=== PATIENT | female | born 1930 | race Caucasian/White ===

== ENCOUNTER 2016-08-13 17:56 | Inpatient (IN) | payer MEDICARE, OTHER ==
--- NOTE | ~2016-08-13 | CN ---
Consultation Report [facility] [address] [place]. [address] NAME: MARYELLEN GREER : 30 STATUS : ADM IN PAT#: [id number] AGE: 85 ADM/REG DATE : 08/13/16 MR#: [id number] REPORT SERV DATE: 08/14/16 DICTATED BY: MENA MONTERO DATE: 08/14/16 REPORT STATUS : Draft TRANSCRIBED BY: MODL DATE: 08/14/16 CARDIOLOGY CONSULTATION DATE OF CONSULTATION: 08/14/2016 REASON FOR CONSULTATION: New diagnosis of atrial fibrillation with probable congestive heart failure. HISTORY OF PRESENT ILLNESS: The patient is an 85-year-old white female, who presented to the emergency department after a fall with severe left hip pain. She was found to have a left hip fracture and new onset atrial fibrillation with a rapid ventricular response. Her troponin has been negative x2. Her BNP level was slightly elevated. Currently she is rate controlled on a Cardizem drip and in no distress. She is scheduled for hip surgery later today. PAST MEDICAL HISTORY: Significant for breast cancer, status post surgery, chemotherapy, and radiation as well as hypothyroidism, hypertension, hyperlipidemia, diverticulosis, previous cellulitis of the lower extremities, B12 deficiency, and chronic lymphedema as well as neuropathy. The patient denies any previous cardiac history other than hypertension and some intermittent palpitations. Her son does report a history of a syncopal episode about a year ago with no clear etiology found at that time and no recurrence since. PAST SURGICAL HISTORY: Includes cholecystectomy, appendectomy, tubal ligation, breast cancer surgery, and right knee surgery. SOCIAL HISTORY: The patient quit smoking in 1983. No alcohol or illicit drug use. She currently lives alone but her son lives just next door. She has apparently had several falls over the past year due to an unsteady gait but this is apparently her first fracture. FAMILY HISTORY: Positive for breast cancer in her mother as well as multiple family members with diabetes. No significant cardiac history in the family. REVIEW OF SYSTEMS: The patient denies nausea, vomiting, diarrhea, or dysuria. She denies any chest pain or dyspnea on exertion. She does report intermittent palpitations that have been occurring intermittently for quite some time. She states that she will usually just go sit down and rest and the palpitations subside. No recent syncope or presyncope. PHYSICAL EXAMINATION: VITAL SIGNS: Blood pressure is 104/58, heart rate 78 and irregular, and respirations are 18 and nonlabored. GENERAL APPEARANCE: The patient is a well developed, well nourished, elderly female, in no acute distress. HEENT: Unremarkable. Consultation Report [facility] [address] [place]. [address] NAME: MARYELLEN GREER : 30 STATUS : ADM IN PAT#: [id number] AGE: 85 ADM/REG DATE : 08/13/16 MR#: [id number] REPORT SERV DATE: 08/14/16 DICTATED BY: MENA MONTERO DATE: 08/14/16 REPORT STATUS : Draft TRANSCRIBED BY: ADELIA DATE: 08/14/16 NECK: Shows no jugular venous distention with good carotid upstroke. No carotid bruit is appreciated. CHEST: Remarkable for some crackles in the bases, left greater than right. CARDIOVASCULAR: PMI is nondisplaced. S1 is variable. S2 is narrowly split. No murmurs, gallops, or rubs noted. ABDOMEN: Soft and nontender with normal bowel sounds. EXTREMITIES: Show +1 to 2 pitting edema on the left with trace edema on the right lower extremity. No cyanosis or clubbing is noted. SKIN: Warm and dry with no pallor or icterus. NEURO/PSYCH: The patient is alert and oriented x3 with appropriate affect. LABORATORY AND DIAGNOSTIC DATA: EKG from last night shows atrial fibrillation with a rapid ventricular response and a left anterior hemiblock, but no acute injury pattern. Chest x- ray showed no acute cardiopulmonary process. Chemistry panel shows a sodium of 139, potassium 4.7, BUN 14, creatinine 0.91, and magnesium 1.7. Troponin is negative x2. The TSH was low at 0.039. BNP level on admission was mildly elevated at 388 with a repeat this morning of 639. IMPRESSION: 1. Atrial fibrillation with rapid ventricular response, now rate controlled. 2. Mild acute congestive heart failure probably related to atrial fibrillation with rapid ventricular response, now rate controlled. 3. Left hip fracture status post fall. 4. Essential hypertension. 5. History of hypothyroidism but currently in a hyperthyroid state on replacement. 6. Remote history of syncope. PLAN: 1. We will check an echocardiogram which has already been ordered. 2. Agree with low-dose beta-kristine and Cardizem drip for rate control. 3. Add oral digoxin and wean Cardizem drip as tolerated. Thank you very much for this consultation. We will continue to follow the patient postoperatively with you. CHAITANYA/ADELIA Mena Montero NP / [id number] CC: Helio Soni M.D. Consultation Report [facility] [id number] [facility] [place]. [address] NAME: MARYELLEN GREER : 30 STATUS : ADM IN PAT#: [id number] AGE: 85 ADM/REG DATE : 08/13/16 MR#: [id number] REPORT SERV DATE: 08/14/16 DICTATED BY: MENA MONTERO DATE: 08/14/16 REPORT STATUS : Draft TRANSCRIBED BY: ADELIA DATE: 08/14/16 Pankaj Monroy M.D. Charli Hayden M.D., F.A.C.C.
--- NOTE | ~2016-08-13 | DS ---
Discharge Summary [facility] [address] [place]. [address] NAME: MARYELLEN GREER : 30 STATUS : DIS IN PAT#: [id number] AGE: 85 ADM/REG DATE : 08/13/16 MR#: [id number] REPORT SERV DATE: 08/22/16 DICTATED BY: ALEX GARDINER DATE: 08/21/16 REPORT STATUS : Draft TRANSCRIBED BY: MODL DATE: 08/21/16 ADMISSION DATE: 08/13/2016 DISCHARGE DATE: 08/21/2016 HOSPITAL COURSE: Please see prior discharge summary done by Dr. Soin. DISCHARGE DIAGNOSES: Hip fracture, atrial fibrillation, RVR, iatrogenic hyperthyroidism due to high Synthroid dosing, high output congestive heart failure, iatrogenic hyperthyroidism, hypoglycemia, failure to thrive, postprocedural hypovolemia, postsurgical acute blood loss anemia. HOSPITAL COURSE: This is an 85-year-old female with known history of dementia. She had come in with a hip fracture, found to be in atrial fibrillation RVR, heart rate 160, TSH highly depressed, free T4 greater than 2, was getting home dose 175 mcg Synthroid unclear why she has had such a high dose with suspected prior noncompliance issue. Synthroid was held, received IV beta blockade. 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 Medical therapies were augmented; BRET and digoxin. T4 has come down close to normal range. Synthroid was restarted only 75 mcg a day. The patient was started on Megace for appetite stimulation. When I saw the patient, the patient was encephalopathic. Full panculture with urine culture rather; urine culture unfortunately grew out ESBL E. coli. She had 5 white blood cells in urine, large leukocyte esterase, thankfully is sensitive to Levaquin, we will start this and give six total days of therapy. Given that she is clinically improved despite optimal treatment, this is ESBL, she is given Rocephin here, it is possible mild UTI encephalopathy. The patient as a result will be discharged. Follow up with PCP in two weeks. Her Doppler lower extremities were negative. She also had a CT of the brain given her encephalopathy. No acute stroke, only cerebral volume loss. 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 DISCHARGE MEDICATIONS: Will include Levaquin 750 p.o. daily for 5 more days, we will give a dose today as well. Aspirin 81 p.o. daily, Lipitor 20 p.o. daily as well as digoxin 0.125 p.o. daily as well as Colace 100 p.o. b.i.d., as well as NovoLog sliding scale, Xalatan eye drops, Synthroid 75 mcg p.o. q.a.m., lisinopril 5 p.o. daily, mag oxide 800 p.o. b.i.d. for 4 more days, KCl 10 mEq p.o. daily, Coumadin sliding scale, Levaquin 750p.o. daily for five more days, Florastor one capsule p.o. b.i.d., Altorex iron supplement at 150 p.o. at bedtime. CONSULTS: Orthopedics, apparently had Cardiology consultation initially as well for atrial fibrillation RVR with Dr. Alfaro. DISCHARGE DIAGNOSES: See above. All questions were answered. It took well over 30 minutes to do. She is much less confused now. Discharge Summary [address] [address] NAME: MARYELLEN GREER : 30 STATUS : DIS IN PAT#: [id number] AGE: 85 ADM/REG DATE : 08/13/16 MR#: [id number] REPORT SERV DATE: 08/22/16 DICTATED BY: ALEX GARDINER DATE: 08/21/16 REPORT STATUS : Draft TRANSCRIBED BY: ADELIA DATE: 08/21/16 NGA/ADELIA Alex Gardiner DO / [id number] CC: DO Pankaj Negro M.D.
--- NOTE | ~2016-08-13 | CN ---
Consultation Report [facility] [address] [facility] [place]. [address] NAME: MARYELLEN GREER : 30 STATUS : ADM IN PAT#: [id number] AGE: 85 ADM/REG DATE : 08/13/16 MR#: [id number] REPORT SERV DATE: 08/14/16 DICTATED BY: MENA MONTERO DATE: 08/14/16 REPORT STATUS : Draft TRANSCRIBED BY: MODL DATE: 08/14/16 CARDIOLOGY CONSULTATION DATE OF CONSULTATION: 08/14/2016 REASON FOR CONSULTATION: Atrial fibrillation and CHF. HISTORY OF PRESENT ILLNESS: The patient is a pleasant 85-year-old white female, who presented to the emergency department after a fall yesterday with severe left hip pain. DICTATION ENDS HERE CHAITANYA/ADELIA Mena Montero NP / [id number] CC: Misael Brower Richard
--- NOTE | ~2016-08-13 | HP ---
History And Physical [facility] [id number] [facility] [place]. [address] NAME: MARYELLEN GREER : 30 STATUS : ADM IN PAT#: [id number] AGE: 85 ADM/REG DATE : 08/13/16 MR#: [id number] REPORT SERV DATE: 08/14/16 DICTATED BY: EVE MEREDITH DATE: 08/14/16 REPORT STATUS : Draft TRANSCRIBED BY: MODL DATE: 08/14/16 DATE OF ADMISSION: 08/13/2016 CHIEF COMPLAINT: An 85-year-old female presenting with a fall and left hip fracture and evidence of new-onset rapid atrial fibrillation. HISTORY OF PRESENT ILLNESS: The patient's history was obtained through careful interview with the patient and son coupled with review of [facility] and [facility] medical records. The patient has actually been ill for at least a year or more. She has lost about 10 pounds over that period of time and the family describes the patient having "a couple of spectacular falls" over the last year. They seem to be sporadic, maybe once every other month, but they have been surprised that she has never fractured any bones before this current presentation. She has had a general decline over this last year. She describes quite frequent dizziness and orthostatic symptoms and seems to complain of occasional palpitations as well. Seven to eight months ago, she actually had a syncopal episode while at the grocery store. The son thought it was attributed to something she ate that day and so they did not go to a hospital for further evaluation of this. It is in this context that the patient was at the foot of her bed this morning and tripped over her portable toilet. She collapsed to the ground and had immediate severe left hip pain. She could not get up from a lying down position, so she called her son by cell phone and he found that she could not get up despite his several attempts. Therefore, they called the ambulance to bring her to the hospital. She described 10/10 left hip pain without significant radiation. No headache, no closed head injury, no loss of consciousness today. She was suffering from lightheadedness, but not any more severe than usual. She does not remember any specific palpitations today. No abdominal pain. She had some slight nausea, but no vomiting. She uses a pessary. No diarrhea or constipation. She has had progression of her dementia over the last year. REVIEW OF SYSTEMS: Otherwise, a 14-point review of systems was obtained and was negative. PAST MEDICAL HISTORY: 1. Breast cancer, 2000 and 2001, status post surgery, chemotherapy, and radiation. 2. Hypothyroidism. 3. Hypertension. History And Physical [address] [address] NAME: MARYELLEN GREER : 30 STATUS : ADM IN PAT#: [id number] AGE: 85 ADM/REG DATE : 08/13/16 MR#: [id number] REPORT SERV DATE: 08/14/16 DICTATED BY: EVE MEREDITH DATE: 08/14/16 REPORT STATUS : Draft TRANSCRIBED BY: ADELIA DATE: 08/14/16 4. Elevated cholesterol. 5. Cellulitis of the legs. 6. Diverticulosis, seen by Dr. Cortez. 7. Pneumonia. 8. B12 deficiency. 9. An ERCP for choledocholithiasis. 10.Chronic lymphedema, right greater than left. 11.Neuropathy. PAST SURGICAL HISTORY: 1. Cholecystectomy. 2. Appendectomy. 3. Tubal ligation. 4. Right lumpectomy. 5. Right knee surgery. 6. Lipoma resection x2 from the back. ALLERGIES: NO KNOWN DRUG ALLERGIES. SOCIAL HISTORY: Quit smoking in 1983. No alcohol use. She lives alone. Has been a for 22 years. She also experienced secondhand tobacco exposure from her until he . She lives in [place], [place], now. Her son lives "across the yard." Another son lives about three miles away and a daughter lives about five miles away. She is supposed to ambulate with a cane, but often forgets to use it. FAMILY HISTORY: Mother with breast cancer. Strong family history of diabetes. CURRENT MEDICATIONS: Include Lipitor 20 mg p.o. daily, eyedrops, Synthroid 175 mcg p.o. daily, lisinopril 30 mg p.o. daily, p.o. q.h.s. PHYSICAL EXAMINATION: VITAL SIGNS: Temperature 97.5, pulse 156, blood pressure 134/87, respiratory rate 22, O2 saturation 98% on room air. GENERAL: A pleasant, cooperative female, in evidence of distress secondary to left hip pain. HEENT: Pupils equal, round, and reactive to light. No conjunctival pallor. No scleral icterus. Nares are patent. Oropharynx was clear of obstruction. Moist mucous membranes. NECK: Trachea midline. No thyromegaly. LYMPH: No cervical lymphadenopathy. No supraclavicular lymphadenopathy. RESPIRATORY: The patient does have wet rales at the base of lungs symmetrically to about the midlung field. No wheezes, no rhonchi. She has a slightly labored respiratory effort at rest in the bed. CARDIOVASCULAR: Tachycardic. Irregularly irregular. No murmurs, rubs, or gallops are appreciated. The patient has bilateral deeply pitting lower extremity edema that extends to the knees symmetrically. ABDOMEN: Soft, nontender, nondistended. Normal bowel sounds auscultated throughout. No hepatosplenomegaly. History And Physical [address] [place]. [address] NAME: MARYELLEN GREER : 30 STATUS : ADM [facility]#: [id number] AGE: 85 ADM/REG DATE : 08/13/16 MR#: [id number] REPORT SERV DATE: 08/14/16 DICTATED BY: EVE MEREDITH DATE: 08/14/16 REPORT STATUS : Draft TRANSCRIBED BY: ADELIA DATE: 08/14/16 DERMATOLOGIC: Warm and dry extremities. No pallor, no cyanosis. She has a bandage that was just placed on her right leg from a large cat scratch abrasion. Since it was just dressed, the family requests that we not unwrap it once again, so I have Wound Care team evaluate on the morning of 08/14/2016. PSYCHIATRIC: Normal affect. Good mood. Alert. She is poorly oriented to details of time, location, and some elements of recent history. LABORATORY DATA: TSH is quite low at 0.03. White blood cell count 6.7, hemoglobin 11, hematocrit 35, platelets 222. Sodium 140, potassium 3.6, chloride 105, bicarb 24, BUN 12, creatinine 0.74, glucose 188. Brain natriuretic peptide 388. Troponin negative. INR 1.1. Urinalysis negative for infection. STUDIES: 1. Chest x-ray by my own evaluation shows cardiomegaly, basilar pulmonary edema, left pleural effusion. 2. EKG by my own evaluation shows rapid atrial fibrillation, left axis deviation, small inferior Q-waves. 3. An x-ray was reported as showing a left femoral neck fracture. ASSESSMENT AND PLAN: 1. Left hip fracture. Obtain orthopedic consult. Place on IV narcotic pain management. 2. New-diagnosis rapid atrial fibrillation possibly induced by a hyperthyroid state? Start on Cardizem drip IV. Consult Dr. Hayden, in home aide. We discussed the case with Dr. Hayden in the emergency department and he recommends no preoperative heparin drip IV at this time. We will check an echocardiogram. 3. Congestive heart failure exacerbation. Suspect this has been induced by persistent rapid atrial fibrillation. Check an echocardiogram. Start beta-kristine. Place on IV diuretic. The patient is on an BRET inhibitor. 4. Iatrogenic hyperthyroidism likely from overmedication. The patient has a very low TSH and is on chronic Synthroid. We will hold Synthroid for now and we will need to adjust dose for discharge planning. 5. Hyperglycemia. Check hemoglobin A1c. Place on sliding scale insulin. 6. Right leg abrasions. Obtain a Wound Care consult. KPL/MODL Eve Meredith M.D. / [id number] CC: Misael Brower M.D.
--- NOTE | ~2016-08-13 | IDS ---
Interim Discharge Summary [facility] [address] [place]. [address] NAME: MARYELLEN GREER : 30 STATUS : ADM IN PAT#: [id number] AGE: 85 ADM/REG DATE : 08/13/16 MR#: [id number] REPORT SERV DATE: 08/18/16 DICTATED BY: CYNTHIA GARCIA DATE: 08/17/16 REPORT STATUS : Draft TRANSCRIBED BY: MODL DATE: 08/17/16 ADMISSION DATE: 08/13/2016 DISCHARGE DATE: DATE OF SUMMARY: 08/17/2016 PRINCIPAL DIAGNOSIS: Hip fracture. SECONDARY DIAGNOSES: Atrial fibrillation with rapid ventricular response due to iatrogenic hyperthyroidism, also high-output congestive heart failure due to iatrogenic hyperthyroidism, hypoglycemia, failure to thrive with postprocedural hypovolemia, post surgical acute blood loss anemia. HISTORY OF PRESENT ILLNESS: Please see Dr. Mcdonald's dictation, 08/13/2016. HOSPITAL COURSE: Admitted with a hip fracture, found to be in atrial fibrillation with RVR, heart rate of 160. TSH was highly depressed, free T4 greater than 2. The patient was found to have been on 175 mcg of Synthroid per day. It is unclear if perhaps her dose had been raised in the setting of prior noncompliance. In any event, the Synthroid was held. She received intravenous beta-blockade in preparation for her operation for the hip fracture, seen by Cardiology as well. Rate was able to be controlled. Ejection fraction showed a reduction to ejection fraction of 40% from baseline of 55% in this clinical study. She had no wall motion abnormalities. This clinical study was felt to be high-output congestive heart failure. She received diuretics prior to surgery and medical therapies were augmented in this setting of reduced systolic function such as BRET inhibitors and digoxin. Free T4 had come down close to normal range and Synthroid was restarted at 75 mcg daily. The patient tolerated physical therapy well. Moving her bowels well. The p.o. intake remained very, very poor. In fact, she had become hypovolemic and hypoglycemic despite the lack of supplemental insulin or diabetic agents, so on 08/17/2016, she was placed back on a D5 infusion, initiated on Megace therapy, and anticipate that she will be able to go to halfway facility on 08/18/2016. Dr. Coburn will presume care of this patient tomorrow. BHAVESH/MODL Cynthia Garcia M.D. / [id number] CC: Misael Brower M.D. Interim Discharge Summary [address] [address] NAME: MARYELLEN GREER : 30 STATUS : ADM IN PAT#: [id number] AGE: 85 ADM/REG DATE : 08/13/16 MR#: [id number] REPORT SERV DATE: 08/18/16 DICTATED BY: CYNTHIA GARCIA DATE: 08/17/16 REPORT STATUS : Draft TRANSCRIBED BY: MODL DATE: 08/17/16 Misael Gil M.D., [facility]
--- NOTE | ~2016-08-13 | HP ---
History And Physical [address] [place]. [address] NAME: MARYELLEN GREER : 30 STATUS : ADM IN PAT#: [id number] AGE: 85 ADM/REG DATE : 08/13/16 MR#: [id number] REPORT SERV DATE: 08/14/16 DICTATED BY: YAMINI MARADIAGA DATE: 08/14/16 REPORT STATUS : Draft TRANSCRIBED BY: MODL DATE: 08/14/16 DATE OF ADMISSION: 08/13/2016 CHIEF COMPLAINT: Left hip pain. HISTORY: This 85-year-old female, very pleasant, who tripped and fell, and injured her left hip. Denies pain or injury elsewhere except for some shortness in her shoulder. There is no associated loss of consciousness, shortness of breath, chest pain, etc. ALLERGIES: NONE. MEDICATIONS: See chart. PAST MEDICAL HISTORY: Hypertension and hypercholesterolemia. SURGICAL HISTORY: Skin cancer on the nose, history of breast cancer, lumpectomy of left breast in 2002, excision of tumor in the back in 1970, bunionectomy in 1977, cholecystectomy in 2006. SOCIAL HISTORY: Here with adult children. No cigarettes, alcohol, or illicit drug use. FAMILY HISTORY: No anesthetic complications. REVIEW OF SYSTEMS: Otherwise negative. PHYSICAL EXAMINATION: GENERAL: She is alert and oriented x3, in no apparent distress. HEENT: Atraumatic, normocephalic. NECK: Supple. CHEST: Symmetric, nontender. LUNGS: Per Medicine evaluation. CV: Regular. ABDOMEN: Soft. No mass. EXTREMITIES: Both upper extremities without acute trauma. Left shoulder with minimal tenderness. No outward sign of injury. Supple range of motion. Right lower extremity without acute trauma. Left lower extremity is short and externally rotated. Skin is intact. Compartment supple. 2+ pulses. NEURO: Sensory and motor without deficit, but weakened in the foot secondary to pain. X-RAY: Displaced left femoral neck fracture. ASSESSMENT: Displaced left femoral neck fracture. PLAN: Left total hip arthroplasty. Risks, benefits, etc, explained. The patient wishes to proceed. History And Physical [address] [address] NAME: MARYELLEN GREER : 30 STATUS : ADM IN PAT#: [id number] AGE: 85 ADM/REG DATE : 08/13/16 MR#: [id number] REPORT SERV DATE: 08/14/16 DICTATED BY: YAMINI MARADIAGA DATE: 08/14/16 REPORT STATUS : Draft TRANSCRIBED BY: ADELIA DATE: 08/14/16 WTB/ADELIA Jimmie. Jose Maradiaga M.D. / [id number] CC: Misael Brower M.D.
--- NOTE | ~2016-08-13 | OP ---
Record Of Operation [facility] [address] [place]. [address] NAME: MARYELLEN GREER : 30 STATUS : ADM IN PAT#: [id number] AGE: 85 ADM/REG DATE : 08/13/16 MR#: [id number] REPORT SERV DATE: 08/15/16 DICTATED BY: YAMINI DOW DATE: 08/14/16 REPORT STATUS : Draft TRANSCRIBED BY: MODL DATE: 08/14/16 DATE OF PROCEDURE: 08/14/2016 PREOPERATIVE DIAGNOSIS: Displaced left femoral neck fracture. POSTOPERATIVE DIAGNOSIS: Displaced left femoral neck fracture. PROCEDURE: Uncemented total hip arthroplasty, Tri-Lock. SIDE: Left. CARD TENDER: ANESTHESIA: See chart. SIZE: See chart. ESTIMATED BLOOD LOSS: About 100 mL. INDICATIONS FOR SURGERY: PROCEDURE: The patient was taken to the operating room and placed supine on the table without incident. Anesthetic was induced per the anesthesiologist. A Puentes catheter was placed by the nurse in the standard sterile technique. The correct side for the procedure was identified by preoperative markings and matched with the consent form. All personnel in the room were in agreement regarding the procedure, patient, and side. The patient was then carefully positioned and carefully padded and prepped and draped in the normal sterile fashion. The patient received prophylactic preoperative antibiotics at the appropriate time. The preoperative x-ray was brought up on the monitor. Again, this was reviewed with the staff in the room. According with the preoperative plan, and angled, an anterolateral incision was made centered over the trochanter extending from proximal posterior to distal anterior. Electrocautery was used to maintain meticulous hemostasis. The IT band was split in line with its fibers. A Charnley retractor was placed over saline moistened laps. A standard anterolateral approach to the hip was carried out dissecting in line with the vastus medialis fibers lifting the inferior 20% of the vastus medialis, proximally the interior 20% of the gluteus medius and gluteus minimus tendons off the anterior capsule. Periosteal elevator was used to elevate soft tissue gently directly off the proximal anterior femoral bone. Appropriate retractors were carefully placed. Complete anterior capsulectomy was performed. The hip was then carefully dislocated with a combination of traction maneuver by the librarian assistant and scooping the ball out of the socket with a Hohmann. A femoral neck osteotomy was marked according to what had been preoperatively planned with a broach as a template. The distance for the femoral neck osteotomy was measured with a ruler. A femoral neck osteotomy was made with an oscillating saw under appropriate retraction. Meticulous hemostasis was again obtained. The leg was then brought up out of the anterior bag and Record Of Operation [facility] [address] [place]. [address] NAME: MARYELLEN GREER : 30 STATUS : ADM IN PAT#: [id number] AGE: 85 ADM/REG DATE : 08/13/16 MR#: [id number] REPORT SERV DATE: 08/15/16 DICTATED BY: YAMINI DOW DATE: 08/14/16 REPORT STATUS : Draft TRANSCRIBED BY: ADELIA DATE: 08/14/16 positioned with the lower extremity in external rotation and slight flexion. Acetabular retractors were placed carefully palpating to be sure that they were directly on the bone. The acetabular labrum was excised with electrocautery and rongeur. Pulvinar fat was removed with a large curette and rongeur and again meticulous hemostasis was obtained. Sequential reamers were used in the acetabulum to 1 mm. less than the final size which was chosen. This was felt to give excellent interference fit. The acetabular fossa was then copiously irrigated with pulsatile lavage and actual acetabular component was placed and impacted and checked to make sure it was down snug. The overall alignment was checked. The acetabular sealer sander was then removed. Screws were placed in the standard fashion. A drill, depth gauge and self tapping screw placement taking care not to plunge as the drill holes were carefully placed. A trial liner was then placed and attention directed back to the proximal femur. The leg was placed back into the anterior bag. The proximal femur was prepared using a box chisel following by a T-handled reamer to determine the intramedullary alignment. This was followed by sequential broaches up to the final broach. Once it was seated in the appropriate position, a Calcar reamer was used to plane the proximal femur. Trial reduction was then done with a trial prosthetic ball and neck. A straight edge was used to compare the tip of the trochanter to center of the ball relationship to what had been noted on the preoperative x-ray. Careful reduction was then done of the total hip. Palpation was done to ascertain and compare leg lengths by palpating the nonoperative leg and also by checking soft tissue tension. The stability of the hip was checked in full extension with full external rotation and in full flexion with adduction, flexion and internal rotation. The hip was then redislocated with a bone hook. The femoral trial and femoral broach were removed. The acetabulum was then prepared under appropriate retraction by removing the trial liner. A central hole eliminator was placed and tightened. The shell was irrigated out. The actual insert was placed and impacted and then checked to be sure it was down snug with a joker. The leg was again positioned in the bag. The proximal femur exposed, irrigated and the actual thermal prosthesis was taken from the customer account representative and impacted. Once it was down, the trunnion was cleansed with a wet and dry lap and the prosthetic thermal head was placed and impacted and checked to be sure it was down snug. The acetabulum was irrigated and reduction was obtained. Again, we checked soft tissue tension, leg length and stability as described above. The hip was closed in a layered fashion with a 5 mm. Mersilene tape placed through a single drill hole in the proximal anterior/superior trochanter reattaching the gluteus medius and minimus fibers. The vastus lateralis, gluteus medius, and gluteus minimus were then closed in a sleeve. Drain was placed between the vastus and the IT band exiting distally anteriorly. The IT band was closed. Subcutaneous closure and skin closure were then obtained. A sterile dressing was applied. The patient was carefully positioned into a supine position and then awakened. The patient was then carefully transferred to the stretcher to be returned to the postoperative care unit without incident. COMPLICATION: None. SPECIMENS: Left femoral head. Record Of Operation [facility] [address] [facility] [place]. [address] NAME: MARYELLEN GREER : 30 STATUS : ADM IN PAT#: [id number] AGE: 85 ADM/REG DATE : 08/13/16 MR#: [id number] REPORT SERV DATE: 08/15/16 DICTATED BY: YAMINI DOW DATE: 08/14/16 REPORT STATUS : Draft TRANSCRIBED BY: ADELIA DATE: 08/14/16 WTB/ADELIA Alicia Dow M.D. / [id number] CC: Misael Brower M.D.
[2016-08-13 17:52] LABS: BASOPHILS 0.1 %; BASOPHILS ABSOLUTE 0.01 10/3/uL (0.0-0.16); EOSINOPHILS 0.1 %; EOSINOPHILS ABSOLUTE 0.01 10/3/uL (0.0-0.53); HEMATOCRIT 35.3 % (36.0-48.0); HEMOGLOBIN 11.5 g/dL (12.0-16.0); IMMATURE GRANULOCYTES 0.3 %; IMMATURE GRANULOCYTES ABSOLUTE 0.02 10/3/uL (0.0-0.11); LYMPHOCYTES 9.2 %; LYMPHOCYTES ABSOLUTE 0.62 10/3/uL (0.67-4.30); MEAN CORPUS HGB CONC 32.6 g/dL (32.0-36.0); MEAN CORPUSCULAR VOLUME 92.2 fL (80-100); MEAN PLATELET VOLUME 10.4 fL (9.2-13.0); MONOCYTES 5.1 %; MONOCYTES ABSOLUTE 0.34 10/3/uL (0.21-1.20); NEUTROPHILS 85.2 %; NEUTROPHILS ABSOLUTE 5.73 10/3/uL (2.02-8.40); PLATELET COUNT 222 10/3/uL (150-400); RBC DISTRIBUTION WIDTH 13.6 % (12.0-16.0); RED CELL COUNT 3.83 10/6/uL (4.0-5.6); WHITE BLOOD CELLS 6.7 10/3/uL (4.5-10.5)
[2016-08-13 17:54] LABS: MANUAL DIFF NO %
[~2016-08-13 17:56] MED LIST: ACTONEL35 MG PO; ALLEGRA180 PO; ANTARA130 MG PO; KLOR-CON 1010 MEQ PO; L20 PO; LEVOTHYROXIN125 MCG PO; LIPITOR20 PO; NEXIUM40 PO; ZESTRIL30 MG PO
[2016-08-13 18:05] LABS: INTERNATIONAL NORMAL RATI 1.1 UNITS (-)
[2016-08-13 18:15] LABS: BUN (BLOOD UREA NITROGEN) 12 MG/DL (6-23); CALCIUM, SERUM 8.8 MG/DL (8.5-10.4); CHEST PAIN PROFILE TAT 0 Hrs 27 Mins; CHLORIDE, SERUM 105 MMOL/L (96-112); CO2 (CARBON DIOXIDE) 24 MMOL/L (24-34); CREATININE 0.74 MG/DL (0.55-1.02); GFR AFRICAN AMERICAN 86 ML/MIN (>=60); GFR NON AFRICAN AMERICAN 74 ML/MIN (>=60); GLUCOSE, SERUM 188 MG/DL (60-99); POTASSIUM, SERUM 3.6 MMOL/L (3.5-5.3); SODIUM, SERUM 140 MMOL/L (135-148); TROPONIN I 0.02 NG/ML (<0.05); ULTRASENSITIVE TSH 0.039 MCIU/ML (0.358-3.740)
[2016-08-13 18:25] LABS: ASCORBIC ACID (UR NOT ORDER) NEG (NEG); BILIRUBIN, URINE NEGATIVE (NEG); ER URINALYSIS TAT 0 Hrs 16 Mins; KETONE, URINE NEGATIVE (NEG); LEUKOCYTE ESTERASE(NOT OR NEG (NEG); NITRITE (URINE) NEG (NEG); WBC (NOT ORDERED) (RFLEX) 1 (0-5)
[2016-08-13] MEDS ORDERED: LIPITOR20 PO (19:02)
[2016-08-13] MEDS ORDERED: SYNTHROID175 MCG PO (19:02)
[2016-08-13] MEDS ORDERED: ZESTRIL30 MG PO (19:02)
[2016-08-13] MEDS ORDERED: XALAT OPH (19:03)
[2016-08-13] MEDS ORDERED: ALTOREX150 MG PO (19:04)
[2016-08-14 06:52] LABS: INTERNATIONAL NORMAL RATI 1.1 UNITS (-); PARTIAL THROMBO TIME 30.3 SEC (22.5-37.2)
[2016-08-14 06:55] LABS: BASOPHILS 0.2 %; BASOPHILS ABSOLUTE 0.01 10/3/uL (0.0-0.16); EOSINOPHILS 0.3 %; EOSINOPHILS ABSOLUTE 0.02 10/3/uL (0.0-0.53); HEMATOCRIT 34.6 % (36.0-48.0); HEMOGLOBIN 11.2 g/dL (12.0-16.0); IMMATURE GRANULOCYTES 0.2 %; IMMATURE GRANULOCYTES ABSOLUTE 0.01 10/3/uL (0.0-0.11); LYMPHOCYTES 12.9 %; LYMPHOCYTES ABSOLUTE 0.78 10/3/uL (0.67-4.30); MANUAL DIFF NO %; MEAN CORPUS HGB CONC 32.4 g/dL (32.0-36.0); MEAN CORPUSCULAR HEMOGLOB 30.4 pg (26.0-34.0); MEAN PLATELET VOLUME 10.7 fL (9.2-13.0); MONOCYTES 12.4 %; MONOCYTES ABSOLUTE 0.75 10/3/uL (0.21-1.20); NEUTROPHILS ABSOLUTE 4.46 10/3/uL (2.02-8.40); PLATELET COUNT 199 10/3/uL (150-400); RBC DISTRIBUTION WIDTH 13.8 % (12.0-16.0); RED CELL COUNT 3.68 10/6/uL (4.0-5.6)
[2016-08-14 07:13] LABS: BUN (BLOOD UREA NITROGEN) 14 MG/DL (6-23); CALCIUM, SERUM 9.2 MG/DL (8.5-10.4); CHLORIDE, SERUM 106 MMOL/L (96-112); CO2 (CARBON DIOXIDE) 24 MMOL/L (24-34); CREATININE 0.91 MG/DL (0.55-1.02); FREE T4 2.15 NG/DL (0.76-1.46); GFR AFRICAN AMERICAN 67 ML/MIN (>=60); GFR NON AFRICAN AMERICAN 58 ML/MIN (>=60); SGPT(ALT) 47 U/L (5-65); SODIUM, SERUM 139 MMOL/L (135-148); TOTAL PROTEIN 6.3 G/DL (6.0-8.5); TROPONIN I 0.03 NG/ML (<0.05); ULTRASENSITIVE TSH 0.032 MCIU/ML (0.358-3.740)
[2016-08-14 07:15] LABS: A/G RATIO 0.9 (0.7-1.9); ALBUMIN 2.9 G/DL (3.5-5.0); ALKALINE PHOSPHATASE 128 U/L (45-117); GLOBULIN 3.4 G/DL (2.5-4.1); GLUCOSE, SERUM 112 MG/DL (60-99); POTASSIUM, SERUM 4.7 MMOL/L (3.5-5.3); SGOT(AST) 51 U/L (5-40); TOTAL BILIRUBIN 1.1 MG/DL (0-1.2)
[2016-08-14 07:16] LABS: B NATRIURETIC PEPTIDE (BNP) 639.4 PG/ML (< 100.0)
[2016-08-14 12:17] LABS: GLYCOHEMOGLOBIN (HbA1c) 5.4 % (4.7-6.1)
[2016-08-15 06:45] LABS: BASOPHILS 0.5 %; BASOPHILS ABSOLUTE 0.02 10/3/uL (0.0-0.16); EOSINOPHILS 0.5 %; EOSINOPHILS ABSOLUTE 0.02 10/3/uL (0.0-0.53); HEMOGLOBIN 9.6 g/dL (12.0-16.0); LYMPHOCYTES 12.6 %; LYMPHOCYTES ABSOLUTE 0.54 10/3/uL (0.67-4.30); MEAN CORPUS HGB CONC 32.5 g/dL (32.0-36.0); MEAN CORPUSCULAR HEMOGLOB 30.8 pg (26.0-34.0); MEAN CORPUSCULAR VOLUME 94.6 fL (80-100); MEAN PLATELET VOLUME 10.6 fL (9.2-13.0); MONOCYTES 11.4 %; MONOCYTES ABSOLUTE 0.49 10/3/uL (0.21-1.20); NEUTROPHILS ABSOLUTE 3.21 10/3/uL (2.02-8.40); RBC DISTRIBUTION WIDTH 13.7 % (12.0-16.0); RED CELL COUNT 3.12 10/6/uL (4.0-5.6); RETICULOCYTE COUNT 1.8 % (0.5-2.5); RETICULOCYTE COUNT ABSOLUTE 56.8 10/3/uL (20.2-119.8); WHITE BLOOD CELLS 4.3 10/3/uL (4.5-10.5)
[2016-08-15 06:50] LABS: HEMATOCRIT 29.5 % (36.0-48.0); MANUAL DIFF NO %; PLATELET COUNT 108 10/3/uL (150-400)
[2016-08-15 06:53] LABS: INTERNATIONAL NORMAL RATI 1.2 UNITS (-); PROTIME (NOT ORD) 15.4 SEC (12.0-14.5)
[2016-08-15 07:15] LABS: % IRON SAT 6 % (20-50); BUN (BLOOD UREA NITROGEN) 17 MG/DL (6-23); CALCIUM, SERUM 8.3 MG/DL (8.5-10.4); CHLORIDE, SERUM 107 MMOL/L (96-112); CO2 (CARBON DIOXIDE) 23 MMOL/L (24-34); CREATININE 1.04 MG/DL (0.55-1.02); FERRITIN 135 NG/ML (8-252); GFR AFRICAN AMERICAN 57 ML/MIN (>=60); GFR NON AFRICAN AMERICAN 49 ML/MIN (>=60); IRON BINDING CAPACITY 242 MCG/DL (225-410); IRON, SERUM 15 MCG/DL (35-150); POTASSIUM, SERUM 3.9 MMOL/L (3.5-5.3); SODIUM, SERUM 143 MMOL/L (135-148)
[2016-08-15 07:19] LABS: GLUCOSE, SERUM 84 MG/DL (60-99)
[2016-08-15 15:11] LABS: HEMATOCRIT 29.9 % (36.0-48.0); HEMOGLOBIN 9.8 g/dL (12.0-16.0)
[2016-08-16 05:03] LABS: BASOPHILS 0.2 %; BASOPHILS ABSOLUTE 0.01 10/3/uL (0.0-0.16); EOSINOPHILS 0 %; HEMATOCRIT 28.3 % (36.0-48.0); HEMOGLOBIN 9.5 g/dL (12.0-16.0); IMMATURE GRANULOCYTES 0.2 %; IMMATURE GRANULOCYTES ABSOLUTE 0.01 10/3/uL (0.0-0.11); LYMPHOCYTES 6.2 %; LYMPHOCYTES ABSOLUTE 0.26 10/3/uL (0.67-4.30); MANUAL DIFF NO %; MEAN CORPUS HGB CONC 33.6 g/dL (32.0-36.0); MEAN CORPUSCULAR HEMOGLOB 30.6 pg (26.0-34.0); MEAN CORPUSCULAR VOLUME 91.3 fL (80-100); MEAN PLATELET VOLUME 11.1 fL (9.2-13.0); MONOCYTES 8.4 %; MONOCYTES ABSOLUTE 0.35 10/3/uL (0.21-1.20); NEUTROPHILS ABSOLUTE 3.56 10/3/uL (2.02-8.40); PLATELET COUNT 107 10/3/uL (150-400); RBC DISTRIBUTION WIDTH 13.4 % (12.0-16.0); WHITE BLOOD CELLS 4.2 10/3/uL (4.5-10.5)
[2016-08-16 05:08] LABS: INTERNATIONAL NORMAL RATI 1.2 UNITS (-); PROTIME (NOT ORD) 15.1 SEC (12.0-14.5)
[2016-08-16 05:28] LABS: CALCIUM, SERUM 8.5 MG/DL (8.5-10.4); CHLORIDE, SERUM 105 MMOL/L (96-112); CO2 (CARBON DIOXIDE) 21 MMOL/L (24-34); CREATININE 1.17 MG/DL (0.55-1.02); FERRITIN 107 NG/ML (8-252); FREE T4 1.61 NG/DL (0.76-1.46); GFR AFRICAN AMERICAN 49 ML/MIN (>=60); GFR NON AFRICAN AMERICAN 42 ML/MIN (>=60); POTASSIUM, SERUM 4.4 MMOL/L (3.5-5.3); SODIUM, SERUM 139 MMOL/L (135-148)
[2016-08-16 05:32] LABS: BUN (BLOOD UREA NITROGEN) 22 MG/DL (6-23); GLUCOSE, SERUM 126 MG/DL (60-99)
[2016-08-17 05:37] LABS: HEMATOCRIT 28.5 % (36.0-48.0); HEMOGLOBIN 9.9 g/dL (12.0-16.0); MEAN CORPUS HGB CONC 34.7 g/dL (32.0-36.0); MEAN CORPUSCULAR HEMOGLOB 31.5 pg (26.0-34.0); MEAN CORPUSCULAR VOLUME 90.8 fL (80-100); MEAN PLATELET VOLUME 11.4 fL (9.2-13.0); RBC DISTRIBUTION WIDTH 13.8 % (12.0-16.0); RED CELL COUNT 3.14 10/6/uL (4.0-5.6)
[2016-08-17 05:39] LABS: MANUAL DIFF YES %; PLATELET COUNT 178 10/3/uL (150-400)
[2016-08-17 05:42] LABS: INTERNATIONAL NORMAL RATI 1.3 UNITS (-); PROTIME (NOT ORD) 16.4 SEC (12.0-14.5)
[2016-08-17 05:52] LABS: CALCIUM, SERUM 8.7 MG/DL (8.5-10.4); CHLORIDE, SERUM 103 MMOL/L (96-112); CREATININE 1.16 MG/DL (0.55-1.02); GFR AFRICAN AMERICAN 50 ML/MIN (>=60); GFR NON AFRICAN AMERICAN 43 ML/MIN (>=60); SODIUM, SERUM 141 MMOL/L (135-148)
[2016-08-17 06:10] LABS: BUN (BLOOD UREA NITROGEN) 36 MG/DL (6-23); CO2 (CARBON DIOXIDE) 28 MMOL/L (24-34); POTASSIUM, SERUM 4.7 MMOL/L (3.5-5.3)
[2016-08-17 06:11] LABS: GLUCOSE, SERUM 81 MG/DL (60-99)
[2016-08-17 06:48] LABS: LYMPHOCYTES 11 %; LYMPHOCYTES ABSOLUTE (CALC) 0.66 10/3/uL (0.67-4.30); MONOCYTES 4 %; MONOCYTES ABSOLUTE (CALC) 0.24 10/3/uL (0.21-1.20); SEGMENTED NEUTROPHIL (0) 85 %; TOTAL NUCLEATED CELLS 100
[2016-08-17 06:49] LABS: BURR CELLS 1+ (3-10/OIF) (0-2/OIF); PLATELET ESTIMATE ADQ (ADEQUATE)
[2016-08-18 05:17] LABS: INTERNATIONAL NORMAL RATI 1.9 UNITS (-)
[2016-08-18 05:18] LABS: PROTIME (NOT ORD) 21.4 SEC (12.0-14.5)
[2016-08-18 05:29] LABS: BUN (BLOOD UREA NITROGEN) 35 MG/DL (6-23); CALCIUM, SERUM 7.8 MG/DL (8.5-10.4); CHLORIDE, SERUM 107 MMOL/L (96-112); CO2 (CARBON DIOXIDE) 26 MMOL/L (24-34); CREATININE 0.88 MG/DL (0.55-1.02); GFR AFRICAN AMERICAN 69 ML/MIN (>=60); GFR NON AFRICAN AMERICAN 60 ML/MIN (>=60); POTASSIUM, SERUM 4.5 MMOL/L (3.5-5.3); SODIUM, SERUM 143 MMOL/L (135-148)
[2016-08-18 05:35] LABS: GLUCOSE, SERUM 105 MG/DL (60-99)
[2016-08-18 09:10] LABS: BASOPHILS 0.2 %; BASOPHILS ABSOLUTE 0.01 10/3/uL (0.0-0.16); EOSINOPHILS 2.7 %; EOSINOPHILS ABSOLUTE 0.18 10/3/uL (0.0-0.53); HEMOGLOBIN 10.3 g/dL (12.0-16.0); IMMATURE GRANULOCYTES 0.3 %; IMMATURE GRANULOCYTES ABSOLUTE 0.02 10/3/uL (0.0-0.11); LYMPHOCYTES 13.4 %; LYMPHOCYTES ABSOLUTE 0.89 10/3/uL (0.67-4.30); MEAN CORPUSCULAR HEMOGLOB 29.6 pg (26.0-34.0); MEAN PLATELET VOLUME 10.7 fL (9.2-13.0); MONOCYTES 10.4 %; MONOCYTES ABSOLUTE 0.69 10/3/uL (0.21-1.20); NEUTROPHILS ABSOLUTE 4.86 10/3/uL (2.02-8.40); PLATELET COUNT 144 10/3/uL (150-400); RBC DISTRIBUTION WIDTH 14.1 % (12.0-16.0); RED CELL COUNT 3.48 10/6/uL (4.0-5.6); WHITE BLOOD CELLS 6.7 10/3/uL (4.5-10.5)
[2016-08-18 09:11] LABS: HEMATOCRIT 32.9 % (36.0-48.0); MANUAL DIFF NO %; MEAN CORPUS HGB CONC 31.3 g/dL (32.0-36.0); MEAN CORPUSCULAR VOLUME 94.5 fL (80-100)
[2016-08-18 22:31] LABS: FOLATE 13.9 NG/ML (>5.2)
[2016-08-19 08:27] LABS: PROTIME (NOT ORD) 13.5 SEC (12.0-14.5)
[2016-08-19 10:34] LABS: ALLENS TEST Pos; BE (BASE EXCESS) 3.7 MEQ/L (0 +/- 2.5); CARBOXYHEMOGLOBIN 0.8 % (0-3); HCO3 (ACTUAL BICARBONATE) 26.2 MEQ/L (23-27); INSTRUMENT SERIAL # 8083; METHEMOGLOBIN 0.3 % (0-3); O2 CONTENT 14.9 VOL% (18-24); PCO2 (CO2 TENSION) 32 MMHG (35-45); PO2 (O2 TENSION) 85 MMHG (79-93); SAMPLE Arterial; pH 7.53 (7.37-7.43)
[2016-08-19 16:47] LABS: ASCORBIC ACID (UR NOT ORDER) NEG (NEG); BILIRUBIN, URINE NEGATIVE (NEG); KETONE, URINE NEGATIVE (NEG); LEUKOCYTE ESTERASE(NOT OR LARGE (NEG); WBC (NOT ORDERED) (RFLEX) 32 (0-5)
[2016-08-19 16:56] LABS: INTERNATIONAL NORMAL RATI 2.5 UNITS (-)
[2016-08-19 16:57] LABS: PROTIME (NOT ORD) 26.6 SEC (12.0-14.5)
[2016-08-20 08:24] LABS: BASOPHILS 0.3 %; BASOPHILS ABSOLUTE 0.02 10/3/uL (0.0-0.16); EOSINOPHILS 2.9 %; EOSINOPHILS ABSOLUTE 0.18 10/3/uL (0.0-0.53); HEMATOCRIT 29.9 % (36.0-48.0); IMMATURE GRANULOCYTES 0.3 %; IMMATURE GRANULOCYTES ABSOLUTE 0.02 10/3/uL (0.0-0.11); LYMPHOCYTES ABSOLUTE 0.81 10/3/uL (0.67-4.30); MEAN CORPUSCULAR HEMOGLOB 30.3 pg (26.0-34.0); MEAN PLATELET VOLUME 10.2 fL (9.2-13.0); MONOCYTES 12.1 %; MONOCYTES ABSOLUTE 0.75 10/3/uL (0.21-1.20); NEUTROPHILS 71.4 %; NEUTROPHILS ABSOLUTE 4.43 10/3/uL (2.02-8.40); RBC DISTRIBUTION WIDTH 13.9 % (12.0-16.0); WHITE BLOOD CELLS 6.2 10/3/uL (4.5-10.5)
[2016-08-20 08:25] LABS: MEAN CORPUS HGB CONC 33.4 g/dL (32.0-36.0); MEAN CORPUSCULAR VOLUME 90.6 fL (80-100); PLATELET COUNT 191 10/3/uL (150-400)
[2016-08-20 08:26] LABS: MANUAL DIFF NO %
[2016-08-20 08:31] LABS: INTERNATIONAL NORMAL RATI 2.3 UNITS (-); PROTIME (NOT ORD) 25.4 SEC (12.0-14.5)
[2016-08-20 09:21] LABS: CHLORIDE, SERUM 108 MMOL/L (96-112); CO2 (CARBON DIOXIDE) 22 MMOL/L (24-34); CREATININE 0.71 MG/DL (0.55-1.02); GFR AFRICAN AMERICAN 90 ML/MIN (>=60); GFR NON AFRICAN AMERICAN 78 ML/MIN (>=60); GLUCOSE, SERUM 92 MG/DL (60-99); PHOSPHORUS, SERUM 1.6 MG/DL (2.5-4.5); POTASSIUM, SERUM 4.7 MMOL/L (3.5-5.3); SODIUM, SERUM 139 MMOL/L (135-148)
[2016-08-20 09:22] LABS: BUN (BLOOD UREA NITROGEN) 14 MG/DL (6-23); CALCIUM, SERUM 9.1 MG/DL (8.5-10.4)
[2016-08-21 05:44] LABS: BASOPHILS 0.2 %; BASOPHILS ABSOLUTE 0.01 10/3/uL (0.0-0.16); EOSINOPHILS 2.8 %; EOSINOPHILS ABSOLUTE 0.15 10/3/uL (0.0-0.53); HEMATOCRIT 29.3 % (36.0-48.0); IMMATURE GRANULOCYTES 0.4 %; IMMATURE GRANULOCYTES ABSOLUTE 0.02 10/3/uL (0.0-0.11); LYMPHOCYTES 18.5 %; LYMPHOCYTES ABSOLUTE 0.99 10/3/uL (0.67-4.30); MEAN CORPUS HGB CONC 34.1 g/dL (32.0-36.0); MEAN CORPUSCULAR HEMOGLOB 31.2 pg (26.0-34.0); MEAN CORPUSCULAR VOLUME 91.3 fL (80-100); MEAN PLATELET VOLUME 9.8 fL (9.2-13.0); MONOCYTES 14.4 %; MONOCYTES ABSOLUTE 0.77 10/3/uL (0.21-1.20); NEUTROPHILS 63.7 %; PLATELET COUNT 187 10/3/uL (150-400); RBC DISTRIBUTION WIDTH 13.8 % (12.0-16.0); RED CELL COUNT 3.21 10/6/uL (4.0-5.6); WHITE BLOOD CELLS 5.3 10/3/uL (4.5-10.5)
[2016-08-21 05:46] LABS: MANUAL DIFF NO %
[2016-08-21 05:50] LABS: INTERNATIONAL NORMAL RATI 2.3 UNITS (-); PROTIME (NOT ORD) 25.2 SEC (12.0-14.5)
[2016-08-21 06:08] LABS: BUN (BLOOD UREA NITROGEN) 15 MG/DL (6-23); CALCIUM, SERUM 8.9 MG/DL (8.5-10.4); CHLORIDE, SERUM 108 MMOL/L (96-112); CO2 (CARBON DIOXIDE) 24 MMOL/L (24-34); CREATININE 0.68 MG/DL (0.55-1.02); GFR AFRICAN AMERICAN 92 ML/MIN (>=60); GFR NON AFRICAN AMERICAN 80 ML/MIN (>=60); GLUCOSE, SERUM 95 MG/DL (60-99); PHOSPHORUS, SERUM 1.6 MG/DL (2.5-4.5); POTASSIUM, SERUM 4.8 MMOL/L (3.5-5.3); SODIUM, SERUM 140 MMOL/L (135-148)
[2016-08-21 06:09] LABS: DIGOXIN 1.8 NG/ML (0.8-2.0)
== END 2016-08-21 16:28 | DRG 469 ==
LOC: ER 17:56 → 1SO 19:31
PROVIDERS: Emergency Medicine; Hospitalist; Internal Medicine; Specialist
PROC: 0SRB02A Replacement of Left Hip Joint with Metal on Polyethylene Synthetic Substitute, Uncemented, Open Approach (ICD-10-PCS; principal; 2016-08-14 18:45)
DX: S72.002A Fracture of unspecified part of neck of left femur, initial encounter for closed fracture (principal); G93.40 Encephalopathy, unspecified; E86.1 Hypovolemia; E05.80 Other thyrotoxicosis without thyrotoxic crisis or storm; I48.91 Unspecified atrial fibrillation; N39.0 Urinary tract infection, site not specified; I50.9 Heart failure, unspecified; D62 Acute posthemorrhagic anemia; I10 Essential (primary) hypertension; R62.7 Adult failure to thrive; E78.5 Hyperlipidemia, unspecified; E03.9 Hypothyroidism, unspecified; W18.30XA Fall on same level, unspecified, initial encounter; Z79.899 Other long term (current) drug therapy; E78.00 Pure hypercholesterolemia, unspecified; Z85.3 Personal history of malignant neoplasm of breast; Z98.890 Other specified postprocedural states; Z90.49 Acquired absence of other specified parts of digestive tract; Z87.891 Personal history of nicotine dependence
CPT/HCPCS: 36415; 36600; 70450; 71010; 73502-LT; 80048; 80053; 80162; 81001; 82140; 82533; 82607; 82728; 82746; 82805; 82962; 83036; 83540; 83550; 83735; 83880; 84100; 84439; 84443; 84481; 84484; 85014; 85018; 85025; 85045; 85610; 85730; 86850; 86900; 86901; 87077; 87086; 87186; 87641; 88305; 88311; 93005; 93306; 93970; 96365; 96368; 96375; 97110-GP; 97116-GP; 97162-GP; 97165-GO; 97530-GP; 97535-GO; 99285; A9270-GY; C1713; C1776; G8978-CM-GP; G8979-CL-GP; J0690; J1160; J1885; J1940; J1956; J2274; J2370; J2405; J2795; J2800; J2916; J3010; J3370; P9045